=== PATIENT | female | born 1950 | race Caucasian/White ===

== ENCOUNTER 2020-12-30 04:10 | Inpatient (IN) | payer OTHER ==
[2020-12-28 10:33] VITALS: BMI 23.4
[2020-12-30] MEDS ORDERED: ceFAZolin SODIUM 1 GM VIAL ONE ×2 (07:45→18:28)
[2020-12-30] MEDS ORDERED: ONDANSETRON 4 MG/2 ML VIAL ONE ×2 (07:45→08:54)
[2020-12-30] MEDS ORDERED: DEXAMETHASONE SOD PHOSPHATE 4 MG/1 ML VIAL ONE ×2 (07:45→08:54)
[2020-12-30] MEDS ORDERED: SUCCINYLCHOLINE CHLORIDE 200 MG/10 ML SYRINGE ONE (07:46)
[2020-12-30] MEDS ORDERED: MIDAZOLAM HCL 2 MG/2 ML SINGLE DOSE VIAL ONE (07:46)
[2020-12-30] MEDS ORDERED: ROCURONIUM BROMIDE 50 MG/5 ML SYRINGE ONE (07:46)
[2020-12-30] MEDS ORDERED: PROPOFOL 20 ML ONE (07:47)
[2020-12-30] MEDS ORDERED: THROMBIN (BOVINE) 5,000 UNIT VIAL TP ONE ×2 (07:51→09:48)
[2020-12-30] MEDS ORDERED: BACITRACIN 50,000 UNITS VIAL TP ONE (08:03)
[2020-12-30] MEDS ORDERED: ceFAZolin SODIUM 1 GM VIAL IVPB ONE (08:14)
[2020-12-30] MEDS ORDERED: BACITRACIN 15 GM TUBE TOPICAL OINTMENT ONE (08:53)
[2020-12-30] MEDS ORDERED: ONDANSETRON 4 MG/2 ML VIAL IVPUSH PRN (09:43)
[2020-12-30] MEDS ORDERED: traMADol HCL 50 MG TABLET PO PRN (09:45)
[2020-12-30] MEDS ORDERED: oxyCODONE HCL 5 MG TABLET PO PRN (09:48)
[2020-12-30] MEDS ORDERED: HYDROmorphone HCl 2 MG/ML VIAL IVPB PRN (09:49)
[2020-12-30] MEDS ORDERED: BUPIVACAINE HCL/PF 0.5% (5MG/ML) 10 ML VIAL IJ ONE (09:49)
[2020-12-30] MEDS ORDERED: CEFAZOLIN 1 GM/D5W 1 GM/50 ML BAG IVPB SCH (10:00)
[2020-12-30] MEDS ORDERED: BACITRACIN 15 GM TUBE TOPICAL OINTMENT TP ONE (10:09)
[2020-12-30] MEDS ORDERED: LACTATED RINGERS SOLUTION 1,000 ML IV SCH (10:15)
[2020-12-30] MEDS ORDERED: HYDROmorphone HCL 2 MG TABLET PO PRN (10:15)
[2020-12-30] MEDS: D5-1/2NS+20 MEQ KCL - 20 MEQ/1,000 ML INFUS.BAG IV SCH ×3 (12:40→22:16)
[2020-12-30] MEDS: SERTRALINE HCL 50 MG TABLET (FP) PO SCH ×2 (13:44→13:48)
[2020-12-30] MEDS: diazePAM 2 MG TABLET PO SCH ×2 (13:44→22:18)
[2020-12-30] MEDS: CHOLECALCIFEROL (VIT D3) 1,000 UNIT (25 MCG) TABLET PO SCH (13:44)
[2020-12-30] MEDS: DOCUSATE SODIUM 100 MG CAPSULE (FP) PO SCH ×2 (13:44→22:18)
[2020-12-30] MEDS ORDERED: PT OWN MED DRAWER 7, Y5N ONE ×4 (14:05→22:12)
[2020-12-30] MEDS ORDERED: DEXTROSE 5%-WATER - 50 ML IVPB ONE (18:28)
[2020-12-30] MEDS: CEFAZOLIN 1 GM in DEXTROSE 5%-WATER - 1 GM/50 ML IVPB IVPB SCH (18:29)
[2020-12-30] MEDS: OFLOXACIN 0.3% OPHTHALMIC SOLUTION 5 ML BOTTLE OS SCH (22:19)
[2020-12-30] MEDS: ACETAMINOPHEN 325 MG TABLET (FP) PO PRN (22:19)
[2020-12-30] MEDS: AMITRIPTYLINE HCL 50 MG TABLET PO SCH (22:24)
[2020-12-31] MEDS ORDERED: ceFAZolin SODIUM 1 GM VIAL ONE ×2 (01:23→10:47)
[2020-12-31] MEDS ORDERED: DEXTROSE 5%-WATER - 50 ML IVPB ONE ×2 (01:23→10:47)
[2020-12-31] MEDS: CEFAZOLIN 1 GM in DEXTROSE 5%-WATER - 1 GM/50 ML IVPB IVPB SCH ×2 (01:42→10:48)
[2020-12-31] MEDS: DOCUSATE SODIUM 100 MG CAPSULE (FP) PO SCH (06:17)
[2020-12-31] MEDS: diazePAM 2 MG TABLET PO SCH (06:18)
[2020-12-31] MEDS: ACETAMINOPHEN 325 MG TABLET (FP) PO PRN (06:40)
[2020-12-31] MEDS: D5-1/2NS+20 MEQ KCL - 20 MEQ/1,000 ML INFUS.BAG IV SCH (09:45)
[2020-12-31] MEDS: SERTRALINE HCL 50 MG TABLET (FP) PO SCH (10:39)
[2020-12-31] MEDS: AMITRIPTYLINE HCL 50 MG TABLET PO SCH (10:40)
[2020-12-31] MEDS: CHOLECALCIFEROL (VIT D3) 1,000 UNIT (25 MCG) TABLET PO SCH (10:41)
[2020-12-31] MEDS: OFLOXACIN 0.3% OPHTHALMIC SOLUTION 5 ML BOTTLE OS SCH (10:42)
[2020-12-31 13:38] VITALS: BP 111/67; PULSE 76; TEMP 98.8
== END 2020-12-31 15:52 | disposition home or self-care (01) | DRG 460 ==
LOC: J2C 04:10 → J8W 12:41
PROVIDERS: ADMIT Neurological Surgery; ATTEND Neurological Surgery
PROC: 01NB0ZZ Release Lumbar Nerve, Open Approach (ICD-10-PCS; 2020-12-30)
PROC: 0SG0071 Fusion of Lumbar Vertebral Joint with Autologous Tissue Substitute, Posterior Approach, Posterior Column, Open Approach (ICD-10-PCS; principal; 2020-12-30 08:00)
DX: M48.061 Spinal stenosis, lumbar region without neurogenic claudication (principal); M43.16 Spondylolisthesis, lumbar region; M81.0 Age-related osteoporosis without current pathological fracture; M54.16 Radiculopathy, lumbar region
CPT/HCPCS: 72100-TC-FY; 86850; 86900; 86901; 94010; 94760; 97116-GP; 97161-GP

== ENCOUNTER 2022-09-29 21:33 | Emergency (ER) | payer OTHER ==
[2022-09-29 21:41] VITALS: BP 117/76; PULSE 70; RESP 19; TEMP 98.6; BMI 19.0
[2022-09-29] MEDS ORDERED: SODIUM CHLORIDE 0.9% 500 ML INFUS.BAG IV ONE (23:14)
[2022-09-29] MEDS ORDERED: FAMOTIDINE 20 MG/50 ML IVPB 20 MG/50 ML MG IVPB ONE ×3 (23:14→23:48)
[2022-09-30 00:28] LABS: HEMATOCRIT 41.2 % (32.4-45.2); HEMOGLOBIN 13.4 GM/dL (10.7-15.3); MCH 29.4 pg (25.7-33.7); MCHC 32.6 g/dl (32.0-36.0); MEAN CELL VOLUME 90.1 fl (80-96); MEAN PLT VOLUME 7.6 fl (7.5-11.1); PLATELET COUNT 254 10^3/uL (134-434); RBC 4.57 M/mm3 (3.60-5.2); RDW 13.5 % (11.6-15.6); WHITE BLOOD COUNT 9.2 K/mm3 (4.0-10.0)
[2022-09-30 01:08] LABS: ALBUMIN 3.4 g/dl (3.4-5.0); CALCIUM 9.4 mg/dL (8.5-10.1)
[2022-09-30 01:09] LABS: BLOOD UREA NITROGEN 23.6 mg/dL (7-18)
[2022-09-30 01:11] LABS: CREATININE 0.7 mg/dL (0.55-1.3)
[2022-09-30 01:13] LABS: BILIRUBIN,TOTAL 0.4 mg/dL (0.2-1); TOT PROT 6.7 g/dl (6.4-8.2)
[2022-09-30] MEDS ORDERED: SODIUM CHLORIDE 500 ML IV STA (01:21)
[2022-09-30] MEDS ORDERED: ONDANSETRON 4 MG/2 ML VIAL IVPUSH ONE (01:21)
[2022-09-30] MEDS ORDERED: ONDANSETRON 4 MG/2 ML VIAL ONE (01:33)
== END 2022-09-30 02:35 | disposition home or self-care (01) ==
LOC: JER 21:33
PROC: 3E033GC Introduction of Other Therapeutic Substance into Peripheral Vein, Percutaneous Approach (ICD-10-PCS; principal; 2022-09-29)
DX: R11.2 Nausea with vomiting, unspecified (principal); T40.715A Adverse effect of cannabis, initial encounter
CPT/HCPCS: 0241U-QW; 36415; 80053; 84484; 85027; 93005; 93010; 99284-25